=== PATIENT | male | born 1990 | race Caucasian/White ===

== ENCOUNTER 2018-01-08 14:58 | Inpatient (IN) | payer OTHER, SELFPAY ==
[2018-01-08] MEDS ORDERED: Ondansetron PF 4 MG/2 ML Vial ONE (15:19)
[2018-01-08 15:31] LABS: #Eosinphils 0.1 thou/uL (0.0-0.7); #Lymphocytes 2.4 thou/uL (1.20-3.40); #Monocytes 0.9 thou/uL (0.11-0.59); #Neutrophils 7.1 thou/uL (1.40-6.50); %Basophils 0.3 % (0.0-1.0); %Eosinophils 0.5 % (0.0-10.0); %Lymphocytes 23.1 % (21.0-51.0); %Monocytes 8.3 % (0.0-10.0); %Neutrophils 67.8 % (42.0-75.0); Hemoglobin 13.3 g/dL (14.0-18.0); Mean Corpuscular HGB CONC 34.5 g/dL (32.0-36.0); Mean Corpuscular Hemoglobin 30.5 pg (27.0-31.0); Mean Corpuscular Volume 88.4 fL (78.0-98.0); Platelet Count 264 thou/uL (130-400); RBC Distribution Width 11.1 % (11.5-14.5); Red Blood Cell (RBC) Count 4.36 mill/uL (4.70-6.10); White Blood Cell (WBC) Count 10.5 thou/uL (4.8-10.8)
[2018-01-08 15:46] LABS: Bilirubin Negative (Negative); Blood, Urine Negative (Negative); Clarity CLEAR (Clear); Glucose, Urine (Dipstick) Negative (Negative); Leukocyte Negative (Negative); Nitrite Negative (Negative); Protein, Urine (Dipstick) Negative (Neg-Trace); Specific Gravity, Urine 1.003 (1.002-1.036); Urobilinogen 0.2 mg/dL (0.2-1.0)
[2018-01-08 15:54] LABS: ALT (SGPT) 25 U/L (8-55); AST (SGOT) 26 U/L (5-34); Acetaminophen Less than 6.0 mcg/mL (10.0-30.0); Albumin 4.4 g/dL (3.5-5.0); Alcohol Less than 10 mg/dL (Less than 10); Alkaline Phosphatase 45 U/L (40-150); Anion Gap 16 mmol/L (10-20); BUN (Urea Nitrogen) 7 mg/dL (8.9-20.6); Bilirubin, Total 1.3 mg/dL (0.2-1.2); CK (CPK) 638 U/L (30-200); Calc. Creatinine Clearance 0 mL/min (70-130); Calcium 8.6 mg/dL (7.8-10.44); Carbon Dioxide 22 mmol/L (22-29); Chloride 87 mmol/L (98-107); Estimated GFR-MDRD Greater than 90; Globulin 2.2 g/dL (2.4-3.5); Glucose 143 mg/dL (70-105); Lipase 25 U/L (8-78); Potassium 3.3 mmol/L (3.5-5.1); Protein, Total 6.6 g/dL (6.0-8.3); Salicylate Less than 8.0 mg/dL (15.0-30.0); Sodium 122 mmol/L (136-145)
[2018-01-08 15:56] LABS: Cocaine Metabolite Screen Not Detected (NotDetected); Medtox Reader # READER 1; Methamphetamine Not Detected (NotDetected); Phencyclidine (PCP) Not Detected (NotDetected); THC/Cannabinoid Screen Not Detected (NotDetected)
[2018-01-08 15:57] LABS: Amphetamine Not Detected (NotDetected); Barbiturates Screen Not Detected (NotDetected); Benzodiazepine Screen Not Detected (NotDetected); Medtox Control Line Valid? VALID (VALID); Methadone Not Detected (NotDetected); Opiate Screen Not Detected (NotDetected); Oxycodone Screen Not Detected (NotDetected); Tricyclic Screen Not Detected (NotDetected)
--- NOTE | 2018-01-08 15:57 | RAD ---
PORTABLE AP CHEST RADIOGRAPH: Date: 01-08-18 History: Altered mental status, nausea, vomiting. Comparison: None available. FINDINGS: The cardiac silhouette is magnified by projection. Pulmonary vasculature is within normal limits. The lungs are clear. Osseous structures are intact. IMPRESSION: No acute cardiopulmonary process. POS: [facility]
[2018-01-08 15:58] LABS: Troponin I Less than 0.010 ng/mL (< 0.028)
--- NOTE | 2018-01-08 16:09 | CT ---
NONCONTRAST CT HEAD: Date: 01/08/18 HISTORY: Altered mental status, nausea and vomiting. Patient reports numbness to hands and tongue. COMPARISON: None available. FINDINGS: There is no evidence of a hemorrhage, acute infarction, mass effect, or midline shift. There is strea k artifact seen in the posterior fossa, but no definite abnormalities are appreciated. Ventricular sy stem is normal in size, shape, and position. Mucus retention cyst seen in the right maxillary antrum with minimal mucosal thickening in each maxillary antrum. Mastoid air cells are clear. Calvarial stru ctures are intact. IMPRESSION: 1. No acute intracranial abnormality is demonstrated. 2. Minimal sinus disease. POS: [facility]
[2018-01-08] MEDS ORDERED: Lorazepam 2 MG/ML VIAL ONE ×3 (16:26→19:31)
[2018-01-08] MEDS ORDERED: Piperacillin/Tazobactam 4.5 GM VIAL ONE (16:55)
[2018-01-08 17:12] LABS: INR-International Normal Ratio 1.1; PTT 30.2 SEC (22.9-36.1)
[2018-01-08] MEDS ORDERED: Vancomycin HCl 1.25 GM in Sodium Chloride 0.9% 250 ML 250 ML IVPB SCH (17:15)
[2018-01-08 17:19] LABS: Magnesium 1.1 mg/dL (1.6-2.6)
[2018-01-08 17:21] LABS: CRP (Inflammatory) Less than 0.50 mg/dL (= or < 0.5); Uric Acid 3.2 mg/dL (3.5-7.2)
[2018-01-08 17:22] LABS: Phosphorus 1.6 mg/dL (2.3-4.7)
[2018-01-08 17:55] LABS: Base Excess-Venous -0.8 mmol/L (0 (+/- 2.5)); CO2 Tension (PvCO2) 39.2 mmHg (41.0-51.0); Calcium, Ionized 1.01 mmol/L (1.12-1.32); Hemoglobin - Calc 12.5 g/dL (12.0-18.0); O2 Tension (PvO2) 48.1 mmHg (35.0-45.0); Potassium 2.7 mmol/L (3.4-4.7); T. Carbon Dioxide 25.2 mmol/L (1.0-85.0); pH (Venous) 7.394 (7.35-7.45); vO2 Saturation-calc 83.3 % (94-98)
[2018-01-08] MEDS ORDERED: Lorazepam 2 MG/ML VIAL SLOW IVP PRN (19:17)
[2018-01-08] MEDS ORDERED: Ondansetron ODT 4 MG TAB PO PRN (19:25)
[2018-01-08] MEDS ORDERED: Ondansetron PF 4 MG/2 ML Vial IVP PRN (19:25)
[2018-01-08] MEDS ORDERED: Acetaminophen 325 MG TAB PO PRN (19:25)
[2018-01-08] MEDS ORDERED: Acetaminophen 650 MG Suppository PR PRN (19:25)
[2018-01-08] MEDS ORDERED: Calcium Carbonate 500 MG ChewTAB PO PRN (19:25)
[2018-01-08] MEDS ORDERED: hydrALAZINE 20 MG/ML VIAL SLOW IVP PRN (19:28)
[2018-01-08] MEDS ORDERED: Magnesium Sulfate 4 GM in Sodium Chloride 0.9% 250 ML 250 ML IVPB SCH (19:30)
[2018-01-08] MEDS ORDERED: Potassium Phosphate 30 MMOL in Sodium Chloride 0.9% 500 ML IVPB SCH (19:30)
[2018-01-08] MEDS ORDERED: Lactated Ringer's 1,000 ML IV SCH (19:30)
[2018-01-08] MEDS: Lorazepam 2 MG/ML VIAL SLOW IVP PRN ×4 (19:33→23:42)
[2018-01-08 19:43] LABS: Lactic Acid 5.1 mmol/L (0.5-2.2)
[2018-01-08] MEDS ORDERED: Calcium Gluconate 4.6 MEQ in Sodium Chloride 0.9% 100 ML IVPB SCH (20:14)
[2018-01-08] MEDS ORDERED: Multivitamins, Adult 10 ML, Folic Acid 1 MG, Thiamine HCl 100 MG in Dextrose 5 %-0.45 %... IV SCH (20:15)
--- NOTE | 2018-01-08 20:45 | HP ---
DATE OF ADMISSION: 01/08/2018 PRIMARY CARE PHYSICIAN: [facility] call admission. CHIEF COMPLAINT: Nausea, vomiting. HISTORY OF PRESENT ILLNESS: Patient is a 27-year-old male who presented to the emergency room with n ausea and vomiting. The patient is currently confused and no information is available from the patie nt. History was obtained from the ER chart. Most of the information was obtained from patient's mot her, Prudence Joy, phone number [phone]. According to the mother, patient required to have quarterly physical at [facility] to meet certain weight l imit. Over the last week or so, the patient has not been eating well. He has been drinking water mo st of the time. He presented to the emergency room with nausea, vomiting along with numbness to his hands and tongue. He also had some blurriness of vision and was diaphoretic in the emergency room. While in the emergency room, patient started having mental status changes. CT scan of the brain was negative. He received a total of 2 mg Ativan, IV fluid and Zofran in the emergency room. His sodium in the emergency room was 122 with lactic acid 5.1, phosphorus 1.6, magnesium 1.1. Blood cultures w ere drawn. He was started on broad spectrum antibiotics empirically. Past medical history, past surgical history, review of system, allergies, home medication, social his tory, family history cannot be obtained from the patient due to current cognitive status. PHYSICAL EXAMINATION: VITAL SIGNS: On ER arrival, temperature 98.3, respirations 24, pulse rate of 84, blood pressure of 1 48/68 with O2 saturation 100% on room air. GENERAL: A 27-year-old male with altered mentation. HEENT: Head atraumatic, normocephalic. Sclerae are anicteric. Dry mucous membranes. No oral lesio n. NECK: Supple, no JVD, no carotid bruit. LUNGS: Clear to auscultation bilaterally. HEART: S1, S2 present. Regular rate and rhythm. No rubs or gallops appreciated. ABDOMEN: Soft, nontender, bowel sounds present, no guarding, no rigidity. EXTREMITIES: No edema or calf tenderness. NEUROLOGIC/PSYCHIATRIC: Could not be reliably done due to current cognitive status. Pupils were 5-6 mm with good response to light. There was no hypertonia. Reflexes were equivocal. SKIN: Warm and dry. LYMPH NODES: No palpable lymph nodes in the neck. PERIPHERAL VASCULAR: Radial pulses palpable bilaterally. LABORATORY AND X-RAY FINDINGS: Sodium 122 with potassium 3.3, chloride 87, bicarbonate 22, BUN 7, cr eatinine 0.84, total bilirubin 1.3. CK was 638. Troponin negative. CRP Negative. Magnesium 1.1, p hosphorus 1.6, uric acid 3.2. Serum osmolarity 260. Urine osmolarity 148. CT scan of the brain by my review was negative. Chest x-ray by my review was negative for infiltrate. EKG by my review show ed sinus rhythm without significant ST-T wave changes. Lactic acid 5.1. IMPRESSION: 1. Metabolic encephalopathy. 2. Hyponatremia. 3. Hypokalemia/hypophosphatemia/hypomagnesemia. 4. Elevated CK. 5. Lactic acidosis. PLAN: The patient will be monitored in the intermediate care unit. We will obtain ammonia and keton es as well. We will use Ativan as needed. Replace electrolytes. I discussed with Nephrology, Dr. Og strong, who recommended starting the patient on Ringer's lactate at 125. A base met will be done every 4 hourly. Frequent neuro checks. We will discuss the plan of care with the family when they arrive.
[2018-01-08] MEDS ORDERED: Famotidine/PF 20 mg/2ml Vial SLOW IVP SCH (21:00)
[2018-01-08] MEDS: Potassium Chloride 40 MEQ in Sodium Chloride 0.9% 250 ML 250 ML IVPB SCH (22:14)
[2018-01-08 23:55] LABS: Anion Gap 13 mmol/L (10-20); BUN (Urea Nitrogen) 5 mg/dL (8.9-20.6); Calc. Creatinine Clearance 0 mL/min (70-130); Calcium 8.5 mg/dL (7.8-10.44); Carbon Dioxide 23 mmol/L (22-29); Chloride 92 mmol/L (98-107); Estimated GFR-MDRD Greater than 90; Glucose 156 mg/dL (70-105); Potassium 3.7 mmol/L (3.5-5.1); Sodium 124 mmol/L (136-145)
[2018-01-08 23:58] VITALS: BMI 29.4
[2018-01-08] MEDS ORDERED: Piperacillin/Tazobactam 4.5 GM in Sodium Chloride 0.9% 100 ML IVPB SCH (23:59)
[2018-01-09] MEDS: Lorazepam 2 MG/ML VIAL SLOW IVP PRN ×6 (00:21→19:25)
--- NOTE | 2018-01-09 00:22 | CON ---
DATE OF CONSULTATION: 01/08/2018 SERVICE: Renal medicine. HISTORY OF PRESENT ILLNESS: Mr. Lee is a 27-year-old white male who presented today for complaint of nausea and vomiting. He also associated confusion with this. According to the history, the patient has been imbibing? free water in the last several hours. At the ER, he was noted to have some decreased visual acuity and complaints of diaphoresis and numbness. He was initially noted to have several electrolyte abnormalities, which included hyponatremia. We are now being consulted for further management of this hyponatremia. REVIEW OF SYSTEMS: Not obtainable. Patient is confused. Positive for nausea and vomiting. No diarrhea, no constipation, no abdominal pain. Positive for numbness of the extremities. No syncopal episode, no productive cough, no fever or chills. MEDICATIONS: None. PAST MEDICAL HISTORY: No significant medical problems. PAST SURGICAL HISTORY: Currently not available since the patient could not cooperate in answer questioning. ALLERGIES: None. TRAUMA: None. IMMUNIZATIONS: Unknown. HOSPITALIZATIONS: Please see past medical history. FAMILY HISTORY: Noncontributory. PHYSICAL EXAMINATION: VITAL SIGNS: Blood pressure is 145/63, heart rate 79, respiratory rate 22, O2 sat 100% room air. GENERAL: Patient is awake, confused, agitated, not in overt distress. SKIN: Adequate turgor. HEENT: Patient has pinkish conjunctivae, anicteric sclerae. NECK: No neck mass, no carotid bruits, no JVD. CHEST: No deformities. Lungs, clear breath sounds, no wheezing, no crackles. HEART: Normal sinus rhythm. No murmur, no gallops, or rubs. ABDOMEN: Globular, soft, nontender, no masses. EXTREMITIES: No edema, no deformities. NEUROLOGIC: Patient is confused, agitated. HOSPITAL MEDICATIONS: Have include Ativan 1 mg q.4 p.r.n. for agitation, Pepcid 20 mg IV q.12 hours, multivitamin IV, Zofran p.r.n. LABORATORY DATA: On 01/08/2018, urinalysis specific gravity 1.003. Urine osmolality 148. Sodium 124, potassium 2.7, chloride 86, glucose 136. Uric acid is 3.2, lactic acid 5.1. On 01/08/2018, 15:16: Sodium 122, potassium 3.3 , chloride 87, carbon dioxide 22, BUN 7, creatinine 0.84, glucose 143. Calcium 8.6, AST 26, ALT 25. CPK is 638, albumin 4.4, troponin I less than 0.01. IMAGING: CT scan of the brain, no acute intracranial abnormality. Chest x-ray normal. ASSESSMENT AND PLAN: 1. Hyponatremia. 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 By intake ofcopious amounts of water this probably precipitated hyponatremia. I noted the urinalysis showed a very dilute urine specific gravity 1.003 and this patient will be able to to excrete the excess free water. My suspicion is, we really without any intervention except for free water restriction he will be able to dump the excess free water and autocorrect with the serum sodium. 2. Volume depletion/electrolyte abnormalities - there is a question that he may be volume depleted and for this reason, we are starting this patient normal saline with potassium to run at 125 mL per hour. 3. Hypomagnesemia/hypophosphatemia, hypokalemia - they currently being corrected on a p.r.n. basis. Overall, prognosis remains guarded. Agree with current management. MTDD
[2018-01-09] MEDS ORDERED: Lorazepam 2 MG/ML VIAL ONE (00:30)
[2018-01-09] MEDS ORDERED: Lorazepam 2 MG/ML VIAL SLOW IVP SCH (00:30)
--- NOTE | 2018-01-09 00:40 | CON ---
DATE OF CONSULTATION: 01/08/2018 SERVICE: Pulmonary Medicine. REASON FOR CONSULTATION: Encephalopathy. HISTORY OF PRESENT ILLNESS: Patient is a 27-year-old white male with past medical history significant for essentially nothing. He was in his usual state of health until he was supposed to make wait for something. We do not have lot elements of the history because he presented himself to the emergency department in a confused state. Shortly after presenting to the ER, he was discovered to be agitated, and got multiple rounds of Ativan as well. I have absolutely no presenting history to go on other than what is in the emergency room record. Apparently, he has been living off of water for the past several days trying to lose a significant amount of weight moving forward. PAST MEDICAL HISTORY: Unknown. PAST SURGICAL HISTORY: Unknown. FAMILY HISTORY: Unknown. SOCIAL HISTORY: Unknown. ALLERGIES: No known drug allergies. MEDICATIONS: List of his inpatient medications were reviewed. Multiple updates were made. REVIEW OF SYSTEMS: This cannot be obtained as the patient is currently encephalopathic. PHYSICAL EXAMINATION: VITAL SIGNS: Afebrile, pulse 92, blood pressure 122/54, respirations 24, saturation 96% on room air. GENERAL: The patient is agitated. HEENT: Normocephalic, atraumatic. Sclerae are white, conjunctivae pink. Oral and nasal mucosa is moist without lesions. He is diaphoretic on both sides of his face. LUNGS: Excellent air entry. There is absolutely no prolonged expiratory phase , wheezing, rhonchi or crackles. HEART: Normal rate, regular. ABDOMEN: Soft, nontender, nondistended. Bowel sounds are positive. MUSCULOSKELETAL: No cyanosis or clubbing. There is no pitting in the bilateral lower extremities. NEUROLOGIC: Grossly nonfocal. He is moving all 4 extremities and demonstrates wonderful strength. He is talking in nonsensical words. LABORATORY DATA: CBC is grossly unremarkable. ESR and CRP are both also unremarkable. INR 1.1. PH 7.39, pCO2 of 39, pO2 of 48. Sodium 124 and gently up trending, potassium 2.7. Ionized calcium 1.01, uric acid 3.2, lactate 5.1 and roughly stable. Cortisol level, and TSH fall within the normal limits. Troponin is negative x1. Magnesium and phosphorus are both reduced. Liver function studies are essentially unremarkable except for minimally elevated total bilirubin of 1.3. His CK is elevated at 638. Urinalysis is essentially unremarkable. Urine osmolality is extremely low. Beta hydroxybutyric acid is unremarkable. Urine drug screen, salicylate, acetaminophen and plasma alcohol levels are all unremarkable. IMAGIN. Chest x-ray demonstrates no acute cardiopulmonary abnormality. 2. CT of the brain demonstrates no acute intracranial abnormality. ASSESSMENT: 1. Metabolic encephalopathy with agitation. 2. Severe dehydration. 3. Hypomagnesemia. 4. Hypophosphatemia. 5. Hypokalemia. 6. Hypocalcemia. 7. Elevated CK. DISCUSSION AND PLAN: I believe the patient is horrendously dehydrated. He has been drinking free water without any electrolytes for several days. My understanding is that this was an attempt to make weight for something. His urine is extremely dilute suggesting that he is trying very hard to hold on to solutes. Dr. Coyne is placing him on half normal saline. I will give him a banana bag to make certain he has some vitamins available. Potassium, magnesium , calcium, and phosphate are going to be replaced. We will repeat these laboratory values in the morning. He will need Ativan to be available every 30 minutes until his mentation improves a little bit and he finds himself a touch more cooperative. His urine drug screen was negative. That being said, it does not preclude the possibility that he did synthetic cannabinoid that does not show up on these things. Lactate will be repeated through time. If they trend down, we will continue to observe, but if they trend upward, this will certainly require closer attention. He remains in fairly critical condition, but we will monitor him very closely in the IMCU. CRITICAL CARE TIME: Thirty minutes. MTDD
[2018-01-09 00:46] LABS: Actual Bicarbonate (HCO3a) 14.7 mEq/L (22-28); Base Excess (BEa) -9.7 mEq/L (-2.0 to +3.0); CO2 Tension 28.4 mmHg (35.0-45.0); Calcium, Ionized 1.12 mmol/L (1.12-1.30); Carboxyhemoglobin (COHb) 1.2 gm% (0.0-3.0); Hemoglobin (Hb) 13.2 g/dL (14.0-18.0); O2 Tension (PaO2) 227.8 mmHg (80.0-100.0); Potassium - ABG Lab 3.43 mmol/L (3.70-5.30); pH, Arterial 7.33 (7.35-7.45)
[2018-01-09 00:49] LABS: Puncture Site RRAD
[2018-01-09] MEDS ORDERED: Haloperidol Lactate 5 MG/ML VIAL ONE (01:17)
--- NOTE | 2018-01-09 02:42 | PRG ---
DATE OF SERVICE: 01/09/2018 SERVICE: Pulmonary Medicine. INTERVAL HISTORY: Patient got severely agitated overnight once again. As such, he was moved from [facility] to the ICU. He was initiated on Precedex drip, combination of this, Haldol, and a couple dose s of Ativan, has got the patient more collected once again. I was asked to evaluate the patient, see whether or not endotracheal intubation would be appropriate. He cannot provide any additional eleme nts of the history. Otherwise, nursing reports no overnight events. PHYSICAL EXAMINATION: VITAL SIGNS: T-max 100.5, pulse 88, blood pressure 138/54, respirations 18, saturation 98% on room a ir. GENERAL: Patient is somnolent. He closes his eyes. He has episodes of agitation, but currently is sedated. HEENT: Normocephalic, atraumatic. Sclerae white, conjunctivae pink. Oral and nasal mucosa is moist without lesions. LUNGS: Excellent air entry. There is no prolonged expiratory phase or wheezing present. HEART: Normal rate, regular. ABDOMEN: Soft, nontender, nondistended. Bowel sounds are positive. MUSCULOSKELETAL: No cyanosis or clubbing. There is no pitting in the bilateral lower extremities. NEUROLOGIC: Grossly nonfocal. LABORATORY DATA: Sodium 124 and up trending, chloride 92 and up trending, potassium 3.7. Basic meta bolic profile is otherwise unremarkable. Calcium 8.5, ammonia 36. pH 7.33, pCO2 of 28, pO2 of 227. ASSESSMENT: 1. Metabolic encephalopathy. 2. Hypomagnesemia. 3. Hypophosphatemia. 4. Hypokalemia, resolved. 5. Hypocalcemia, resolved. 6. Elevated creatine kinase. DISCUSSION AND PLAN: We will continue medications in order to provide a touch of sedation to the pat ient. He will have 10 mg of Haldol q.6 as needed, Ativan 2 mg every 15 as needed, we would also init iate Precedex drip. The Precedex drip will be weaned away through time. Luu catheter will be disc ontinued, as I would not like the patient have a traumatic injury there. Morning labs including lact ate, basic metabolic profile, and CK are once again pending. He will remain in the ICU. Hopefully, some of his laboratories will continue to trend in the correct direction. I will spend the next hour at bedside to make certain the patient does not have severe agitation or requiring intubation. CRITICAL CARE TIME: 60 minutes.
[2018-01-09 02:55] VITALS: BP 136/71
[2018-01-09] MEDS: Potassium Chloride 40 MEQ in Sodium Chloride 0.9% 250 ML 250 ML IVPB SCH (03:25)
[2018-01-09 04:06] LABS: Lactic Acid 1.5 mmol/L (0.5-2.2)
[2018-01-09 04:12] LABS: Anion Gap 11 mmol/L (10-20); BUN (Urea Nitrogen) 6 mg/dL (8.9-20.6); CK (CPK) 1811 U/L (30-200); Calc. Creatinine Clearance 193 mL/min (70-130); Calcium 8.8 mg/dL (7.8-10.44); Carbon Dioxide 25 mmol/L (22-29); Chloride 100 mmol/L (98-107); Estimated GFR-MDRD Greater than 90; Glucose 127 mg/dL (70-105); Sodium 132 mmol/L (136-145)
[2018-01-09] MEDS: Haloperidol Lactate 5 MG/ML VIAL SLOW IVP PRN ×3 (05:39→19:25)
--- NOTE | 2018-01-09 05:47 | PDOC.EVN ---
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 Lydia ferrari was called. In IMCU, found that ~ 9 nurses and security were trying to keep patient down. Patient was in restraints but fighting restraints and very agitated. Nurse Staff states that patient has been given ~ 16mg of Ativan but patient is agitated so they called code blue and are going to intubated the patient. Upon reviewing the patient vitals and labs including Blood gas, there was no need for intubation at the time. Called egg worker on his recommendation and agreed to just sedate patient with precedex and stay away from intubation. Patient was transferred to the ICU. 4mg Ativan was given, 5mg of Haldol given. Luu catheter was placed. Called legal intern for their recommendation. Per Nephro, just continue current treatment. Dr. Sullivan egg worker has come to the ICU and examined the patient and also agrees to continue current management at this time. Assessment: Encephalopathy, Acute -- etiology unclear. continue current treatment. Total Critical ICU time is ~120mins
[2018-01-09] MEDS: D5 NS w/ 40 mEq KCl 1,000 ML IV SCH ×2 (06:20→07:46)
[2018-01-09] MEDS: D5 1/2 NS w/20 mEq KCL 1,000 ML IV SCH ×2 (09:32→16:03)
[2018-01-09 14:37] LABS: Anion Gap 10 mmol/L (10-20); BUN (Urea Nitrogen) 5 mg/dL (8.9-20.6); Calc. Creatinine Clearance 193 mL/min (70-130); Calcium 9.1 mg/dL (7.8-10.44); Carbon Dioxide 25 mmol/L (22-29); Chloride 106 mmol/L (98-107); Estimated GFR-MDRD Greater than 90; Glucose 117 mg/dL (70-105); Magnesium 2.1 mg/dL (1.6-2.6); Sodium 137 mmol/L (136-145)
[2018-01-09 14:41] LABS: Phosphorus 1.5 mg/dL (2.3-4.7)
[2018-01-09 14:49] LABS: CK (CPK) 7078 U/L (30-200)
[2018-01-09] MEDS ORDERED: Potassium Phosphate 30 MMOL in Sodium Chloride 0.9% 250 ML 250 ML IV SCH (15:15)
[2018-01-09] MEDS ORDERED: Sodium Phosphate 30 MMOL in Sodium Chloride 0.9% 250 ML 250 ML IV SCH (15:45)
--- NOTE | 2018-01-09 18:17 | PRG ---
DATE OF SERVICE: 01/09/2018 SUBJECTIVE: Mr. Joy is a 27-year-old white male who was seen for his acute hyponatremia. 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 Urinalysis was relatively benign with a specific gravity which was suggestive of very dilute urine. He autocorrected spontaneously. His serum sodium is now normal. He is now on maintenance half normal saline with 20 mEq and running at 1 25 mL per hour. He is sedated at the present time. Last night he was severely agitated. OBJECTIVE: VITAL SIGNS: Blood pressure is noted at 148/71, heart rate 62, respiratory rate 17, pulse ox 100%. GENERAL: Sedated, comfortable, not in distress. SKIN: Adequate turgor. HEENT: He has pinkish conjunctivae, anicteric sclerae. NECK: No neck mass, no carotid bruits, no JVD. CHEST: No deformities. LUNGS: Clear breath sounds. No wheezing, no crackles. HEART: Normal sinus rhythm. No murmur, no gallops or rubs. ABDOMEN: Globular, soft, nontender, no masses. EXTREMITIES: No edema, no deformities. MEDICATIONS: Of 01/09/2018 was reviewed. LABORATORY DATA: Of 01/09/2018. Sodium 137, potassium 4, chloride 106, carbon dioxide 25, BUN 5, cr eatinine 0.86, glucose 117, phosphorus 1.5, CPK 7078. ASSESSMENT AND PLAN: 1. Hyponatremia -- secondary to primary polydipsia -- much improved. Serum sodium now is within nor mal. Continue maintenance D5 half normal saline. 2. Hypophosphatemia/hypokalemia, p.r.n. correction. 3. Decreased mentation, unclear etiology. This could be from metabolic encephalopathy. The initial CT scan of the head was within normal.
--- NOTE | 2018-01-09 22:45 | PDOC.PN ---
- Subjective Encounter Start Date: 01/09/18 Encounter Start Time: 08:00 Patient seen and examined for Hyponatremia/Met Encephalopathy. Remains confused. Overnight events noted - Objective Resuscitation Status: Resuscitation Status FULL:Full Resuscitation MAR Reviewed: Yes Vital Signs & Weight: Vital Signs (12 hours) Temp Pulse Ox 01/09/18 20:00 97.9 F 100 01/09/18 16:00 97.8 F 01/09/18 14:00 99 01/09/18 12:00 97.9 F Weight Admit Weight 229 lb Weight 229 lb 1.6 oz Most Recent Monitor Data Heart Rate from ECG 86 NIBP 138/70 NIBP BP-Mean 92 Respiration from ECG 19 SpO2 100 I&O: 01/08/18 01/09/18 01/10/18 06:59 06:59 06:59 Intake Total 1652.4 1806 Output Total 1400 1000 Balance 252.4 806 Result Diagrams: 01/10/18 06:03 01/09/18 14:02 Additional Labs: Accuchecks 01/09/18 19:49 POC Glucose 111 H Radiology Reviewed by me: Yes (CXR - no infiltrate) EKG Reviewed by me: Yes (Tele SR) Phys Exam - Physical Examination Constitutional: NAD Respiratory: no wheezing, no rales, no rhonchi, clear to auscultation bilateral Cardiovascular: RRR, no rub No heaves/pulsations Gastrointestinal: soft, no distention, positive bowel sounds no guarding/rigidity Musculoskeletal: no edema Neurological: moves all 4 limbs Neuro/Psych - Cannot obtain due to current mentation Dx/Plan - Plan DVT proph w/SCDs IMPRESSION: 1. Toxic Metabolic encephalopathy 2. Hyponatremia. 3. Hypokalemia/hypophosphatemia/hypomagnesemia. 4. Rhabdomyolysis 5. Lactic acidosis. PLAN: Cont Ativan PRN IVF changed to D51/2 NS with Potassium - per Nephro Monitor electrolytes closely Critical care/Nephro input appreciated Cont other meds as below Review of Systems - Review of Systems Other: Cannot obtain due to current mentation. - Medications/Allergies Allergies/Adverse Reactions: Allergies Allergy/AdvReac Type Severity Reaction Status Date / Time No Known Drug Allergies Allergy Verified 01/08/18 17:09 Medications: Current Medications Acetaminophen (Tylenol) 650 mg VT Q4H PRN PRN Reason: Headache/Fever/Mild Pain (1-3) Acetaminophen (Tylenol) 650 mg PO Q4H PRN PRN Reason: Headache/Fever/Mild Pain (1-3) Calcium Carbonate (Tums) 1,000 mg PO Q4H PRN PRN Reason: Heartburn or Indigestion Haloperidol Lactate (Haldol) 10 mg SLOW IVP Q4H PRN PRN Reason: Agitation Last Admin: 01/09/18 19:25 Dose: 10 mg Hydralazine HCl (Apresoline) 10 mg SLOW IVP Q4H PRN PRN Reason: SBP Greater Than 180 Dexmedetomidine HCl 400 mcg/ (Sodium Chloride) 100 mls @ 0 mls/hr IVPB INF ANTON ; Protocol Last Admin: 01/09/18 17:42 Dose: 100 mls Potassium Chloride/Dextrose/Sod Cl (D5 1/2 Ns W/20 Meq Kcl) 1,000 mls @ 125 mls /hr IV .Q8H ANTON Last Admin: 01/09/18 16:03 Dose: 1,000 mls Lorazepam (Ativan) 2 mg SLOW IVP Q15MIN PRN PRN Reason: Agitation Last Admin: 01/09/18 12:56 Dose: 2 mg Ondansetron HCl (Zofran Odt) 4 mg PO Q6H PRN PRN Reason: Nausea/Vomiting Ondansetron HCl (Zofran) 4 mg IVP Q6H PRN PRN Reason: Nausea/Vomiting Sodium Chloride (Flush - Normal Saline) 10 ml IVF Q12HR ANTON Last Admin: 01/09/18 20:51 Dose: 10 ml Sodium Chloride (Flush - Normal Saline) 10 ml IVF PRN PRN PRN Reason: Saline Flush
[2018-01-10] MEDS: D5 1/2 NS w/20 mEq KCL 1,000 ML IV SCH ×3 (00:02→16:29)
[2018-01-10] MEDS: Haloperidol Lactate 5 MG/ML VIAL SLOW IVP PRN ×3 (00:05→10:25)
[2018-01-10] MEDS: Lorazepam 2 MG/ML VIAL SLOW IVP PRN ×2 (03:37→04:00)
[2018-01-10 06:32] LABS: CK (CPK) Greater than 4000 U/L (30-200)
[2018-01-10 06:39] LABS: #Lymphocytes 2.3 thou/uL (1.20-3.40); #Monocytes 0.8 thou/uL (0.11-0.59); #Neutrophils 3.9 thou/uL (1.40-6.50); %Basophils 0.5 % (0.0-1.0); %Eosinophils 0.6 % (0.0-10.0); %Lymphocytes 32.7 % (21.0-51.0); %Monocytes 11.7 % (0.0-10.0); %Neutrophils 54.4 % (42.0-75.0); Hemoglobin 13.6 g/dL (14.0-18.0); Mean Corpuscular HGB CONC 33.3 g/dL (32.0-36.0); Mean Corpuscular Hemoglobin 29.7 pg (27.0-31.0); Mean Corpuscular Volume 89.1 fL (78.0-98.0); Mean Platelet Volume 7.7 fL (7.4-10.4); Platelet Count 225 thou/uL (130-400); RBC Distribution Width 11.6 % (11.5-14.5); Red Blood Cell (RBC) Count 4.59 mill/uL (4.70-6.10); White Blood Cell (WBC) Count 7.1 thou/uL (4.8-10.8)
--- NOTE | 2018-01-10 10:37 | PRG ---
DATE OF SERVICE: 01/10/2018 SUBJECTIVE: The patient remains encephalopathic in the ICU. He is on Precedex, Haldol p.r.n., Ativan p.r.n., rigoberto ears to be slightly more responsive. Most of his electrolytes apparently have improved. Admission sodium was 122. OBJECTIVE: VITAL SIGNS: Pulse 99, blood pressure 122/82, sats 100%, 17. CHEST: No wheezing. CARDIAC: Normal S1, S2, no gallops. ABDOMEN: Soft. EXTREMITIES: No edema. LABORATORY DATA: White count 7000. Renal functions, electrolytes normal. CK was 7000, today is 400 0. IMPRESSION: 1. Status post metabolic encephalopathy. 2. Massive water intake with ensuing severe hyponatremia. 3. Electrolyte imbalance. PLAN: Continue aggressive PT and nutrition. We will follow in the ICU.
[2018-01-10 12:36] LABS: Anion Gap 11 mmol/L (10-20); BUN (Urea Nitrogen) 4 mg/dL (8.9-20.6); Calc. Creatinine Clearance 195 mL/min (70-130); Calcium 9.1 mg/dL (7.8-10.44); Carbon Dioxide 23 mmol/L (22-29); Chloride 107 mmol/L (98-107); Estimated GFR-MDRD Greater than 90; Glucose 109 mg/dL (70-105); Potassium 4.1 mmol/L (3.5-5.1); Sodium 137 mmol/L (136-145)
--- NOTE | 2018-01-10 13:22 | PRG ---
DATE OF SERVICE: 01/10/2018 Mr. Joy is a 27-year-old white male who was seen for an acute hyponatremia secondary to presumed primary polydipsia. His hyponatremia is much improved. However, his mentation remains not yet back to baseline. He still is confused. He is off sedation the present time. OBJECTIVE: VITAL SIGNS: Blood pressure is 106/57, heart rate is 63, respiratory rate 17, pulse ox 100%. GENERAL: The patient is arousable, but is sleepy, not in distress. SKIN: Adequate turgor. HEENT: He has had pinkish conjunctivae, anicteric sclerae. NECK: No neck mass, no carotid bruits, no JVD. CHEST: No deformities. LUNGS: Clear breath sounds. HEART: Normal sinus rhythm. No murmur, no gallops, no rubs. ABDOMEN: Globular, soft, nontender, no masses. EXTREMITIES: No edema. No deformities. MEDICATIONS: Of January 10, 2018, was reviewed. LABORATORY DATA: Of January 10, 2018, white count 7.1, hemoglobin 13.6. Sodium 137, potassium 4, ch loride 106, carbon dioxide 25, BUN 5, creatinine 0.86, glucose 117, calcium 9.1, phosphorus 3.0. CK is greater than 4000. ASSESSMENT AND PLAN: Acute hyponatremia, most likely from primary polydipsia, much improved. The patient has spontaneous auto correction of his hyponatremia. Continue current management. No indication for any hypertonic saline. We will continue current D5 half normal saline to maintain his volume status. Due to the im proved hyponatremia, we will be signing off. Please recall if needed.
--- NOTE | 2018-01-10 21:47 | PDOC.PN ---
- Subjective Encounter Start Date: 01/10/18 Encounter Start Time: 14:00 -: non-verbal Patient seen and examined for Encephalopathy. Mentation improvng. Somnolent. No overnight events - Objective Resuscitation Status: Resuscitation Status FULL:Full Resuscitation MAR Reviewed: Yes Vital Signs & Weight: Vital Signs (12 hours) Temp Pulse Ox 01/10/18 20:00 99 01/10/18 19:00 98.4 F 01/10/18 16:00 98.1 F Weight Admit Weight 229 lb Weight 229 lb 1.6 oz Most Recent Monitor Data Heart Rate from ECG 44 NIBP 103/48 NIBP BP-Mean 66 Respiration from ECG 14 SpO2 99 I&O: 01/09/18 01/10/18 01/11/18 06:59 06:59 06:59 Intake Total 1652.4 3462 1646 Output Total 1400 1000 3100 Balance 252.4 6420 -9379 Result Diagrams: 01/10/18 06:03 01/10/18 06:03 Additional Labs: Accuchecks 01/10/18 00:00 POC Glucose 106 EKG Reviewed by me: Yes (Tele SR) Phys Exam - Physical Examination Constitutional: NAD Respiratory: no wheezing, no rhonchi Cardiovascular: RRR, no rub Gastrointestinal: soft, non-tender, positive bowel sounds Musculoskeletal: no edema Neurological: moves all 4 limbs Dx/Plan - Plan DVT proph w/SCDs IMPRESSION: 1. Toxic Metabolic encephalopathy - improving 2. Hyponatremia - improving 3. Hypokalemia/hypophosphatemia/hypomagnesemia. 4. Rhabdomyolysis 5. Lactic acidosis. PLAN: Cont IVF AM labs Ativan PRN Cont current meds as below Laboratory Tests 01/09/18 01/10/18 14:02 06:03 Phosphorus 3.0 Magnesium 2.0 Creatine Kinase 7078 H Greater than 4000 H Review of Systems - Review of Systems Respiratory: negative: Cough, Dry, Shortness of Breath, Hemoptysis, SOB with Excertion, Pleuritic Pain, Sputum, Wheezing Cardiovascular: negative: chest pain, palpitations, orthopnea, paroxysmal nocturnal dyspnea, edema, light headedness, other - Medications/Allergies Allergies/Adverse Reactions: Allergies Allergy/AdvReac Type Severity Reaction Status Date / Time No Known Drug Allergies Allergy Verified 01/08/18 17:09 Medications: Current Medications Acetaminophen (Tylenol) 650 mg WA Q4H PRN PRN Reason: Headache/Fever/Mild Pain (1-3) Acetaminophen (Tylenol) 650 mg PO Q4H PRN PRN Reason: Headache/Fever/Mild Pain (1-3) Calcium Carbonate (Tums) 1,000 mg PO Q4H PRN PRN Reason: Heartburn or Indigestion Haloperidol Lactate (Haldol) 10 mg SLOW IVP Q4H PRN PRN Reason: Agitation Last Admin: 01/10/18 10:25 Dose: 10 mg Hydralazine HCl (Apresoline) 10 mg SLOW IVP Q4H PRN PRN Reason: SBP Greater Than 180 Potassium Chloride/Dextrose/Sod Cl (D5 1/2 Ns W/20 Meq Kcl) 1,000 mls @ 125 mls /hr IV .Q8H [facility] Last Admin: 01/10/18 16:29 Dose: 1,000 mls Dexmedetomidine HCl 400 mcg/ (Sodium Chloride) 100 mls @ 0 mls/hr IVPB INF [facility] ; Protocol Last Admin: 01/10/18 16:57 Dose: 100 mls Lorazepam (Ativan) 2 mg SLOW IVP Q15MIN PRN PRN Reason: Agitation Last Admin: 01/10/18 04:00 Dose: 2 mg Ondansetron HCl (Zofran Odt) 4 mg PO Q6H PRN PRN Reason: Nausea/Vomiting Ondansetron HCl (Zofran) 4 mg IVP Q6H PRN PRN Reason: Nausea/Vomiting Sodium Chloride (Flush - Normal Saline) 10 ml IVF Q12HR [facility] Last Admin: 01/10/18 21:45 Dose: 10 ml Sodium Chloride (Flush - Normal Saline) 10 ml IVF PRN PRN PRN Reason: Saline Flush
[2018-01-11] MEDS: D5 1/2 NS w/20 mEq KCL 1,000 ML IV SCH ×2 (00:56→09:29)
[2018-01-11 05:18] LABS: #Eosinphils 0.1 thou/uL (0.0-0.7); #Lymphocytes 2.5 thou/uL (1.20-3.40); #Monocytes 0.7 thou/uL (0.11-0.59); #Neutrophils 2.5 thou/uL (1.40-6.50); %Basophils 0.6 % (0.0-1.0); %Eosinophils 1.4 % (0.0-10.0); %Lymphocytes 42.5 % (21.0-51.0); %Monocytes 11.9 % (0.0-10.0); %Neutrophils 43.7 % (42.0-75.0); Hemoglobin 13.7 g/dL (14.0-18.0); Mean Corpuscular HGB CONC 34.1 g/dL (32.0-36.0); Mean Corpuscular Hemoglobin 30.7 pg (27.0-31.0); Mean Platelet Volume 8.2 fL (7.4-10.4); Platelet Count 230 thou/uL (130-400); RBC Distribution Width 11.5 % (11.5-14.5); Red Blood Cell (RBC) Count 4.47 mill/uL (4.70-6.10); White Blood Cell (WBC) Count 5.8 thou/uL (4.8-10.8)
[2018-01-11 05:37] LABS: ALT (SGPT) 46 U/L (8-55); AST (SGOT) 70 U/L (5-34); Albumin 4.1 g/dL (3.5-5.0); Alkaline Phosphatase 39 U/L (40-150); Anion Gap 10 mmol/L (10-20); BUN (Urea Nitrogen) 4 mg/dL (8.9-20.6); Bilirubin, Total 0.9 mg/dL (0.2-1.2); CK (CPK) 3744 U/L (30-200); Calc. Creatinine Clearance 189 mL/min (70-130); Calcium 9.2 mg/dL (7.8-10.44); Carbon Dioxide 27 mmol/L (22-29); Chloride 105 mmol/L (98-107); Estimated GFR-MDRD Greater than 90; Globulin 2.6 g/dL (2.4-3.5); Glucose 112 mg/dL (70-105); Magnesium 1.8 mg/dL (1.6-2.6); Phosphorus 3.9 mg/dL (2.3-4.7); Potassium 3.8 mmol/L (3.5-5.1); Protein, Total 6.7 g/dL (6.0-8.3); Sodium 138 mmol/L (136-145)
[2018-01-11] MEDS ORDERED: Enoxaparin Sodium 40 MG/0.4 ML SYRINGE SC SCH (09:00)
--- NOTE | 2018-01-11 10:42 | PRG ---
DATE OF SERVICE: 01/11/2018 SUBJECTIVE: This morning, he is awake, alert, responsive. He is much improved to his baseline OBJECTIVE: VITAL SIGNS: Blood pressure is 124/56, pulse 82, sats are 98%, respirations 21. GENERAL: In no distress. He is neurologically oriented to person, place, and time. CHEST: No wheezing or crackles. CARDIAC: Normal S1 and S2. No gallops. ABDOMEN: Soft. LABORATORY DATA: Sodium 138. CK is 374. IMPRESSION: 1. Binge water drinking, chronic electrolyte imbalance, much improved. 2. Encephalopathy, resolved. PLAN: The patient is going to be discharged home today. Follow up with his primary care physician. He may need ongoing counseling.
[2018-01-11 12:59] VITALS: TEMP 98.2
--- NOTE | 2018-01-12 10:42 | DIS ---
DATE OF DISCHARGE: 01/11/2018 DISCHARGE DISPOSITION: Home. FOLLOWUP: Follow up with primary care physician in 1 week. The patient was advised to follow up at [facility]. He has never seen a primary care physician before. DISCHARGE MEDICATIONS: None. The patient was seen and examined on the day of discharge, denies any new complaints, no chest pain, shortness of breath, palpitations reported. BRIEF HOSPITAL COURSE: The patient is a 27-year-old white male with no significant past history, who presented to the hospital with nausea, vomiting and confusion. Please refer to the history and phys ical for further details. The patient was admitted to the hospital with a diagnosis of metabolic encephalopathy. He was monito red in the IMCU and was eventually transferred to the CCU due to uncontrolled agitation. His workup was consistent with multiple electrolyte abnormalities including hyponatremia, hypokalemia, hypophosp hatemia and lactic acidosis. The patient was seen by Critical Care as well as Nephrology. His elect rolytes have been gradually replaced. His sodium, potassium, phosphorus and magnesium are normal. L actic acidosis has resolved. His mentation is back to normal. His CK has improved [place] 3744 on the da y of discharge. He will require a base met along with magnesium, phosphorus, and CK after 1 week. P [facility] physician advised to follow. Plan of care was discussed with the patient in detail. He stated understanding. FINAL DIAGNOSES: 1. Metabolic encephalopathy, multifactorial. 2. Multiple electrolyte abnormalities including hypotonic hyponatremia, hypokalemia, hypophosphatemi a and hypomagnesemia. 3. Lactic acidosis. 4. Rhabdomyolysis. Plan of care was discussed with the patient in detail. He stated understanding.
--- NOTE | 2018-01-17 11:00 | EKG ---
Test Reason : Blood Pressure : / mmHG Vent. Rate : 084 BPM Atrial Rate : 084 BPM P-R Int : 158 ms QRS Dur : 110 ms QT Int : 384 ms P-R-T Axes : 049 094 042 degrees QTc Int : 453 ms Normal sinus rhythm Rightward axis Minimal voltage criteria for LVH, may be normal variant Borderline ECG Confirmed by XIN MORSE M.D. ([id number]), online editor MARIA D GARIBAY ([id number] on 01/17/2018 11:00:29 AM Referred By: Confirmed By:XIN MORSE M.D.
== END 2018-01-11 12:51 | disposition home or self-care (01) | DRG 640 ==
LOC: ERS 14:58 → CCU 18:46 → IMCU/EMU 18:56 → CCU 01-09 00:58
PROVIDERS: ADMIT Internal Medicine; ATTEND Internal Medicine
DX: E87.1 Hypo-osmolality and hyponatremia (principal); G93.41 Metabolic encephalopathy; M62.82 Rhabdomyolysis; E87.6 Hypokalemia; E83.39 Other disorders of phosphorus metabolism; E87.2 Acidosis; E83.51 Hypocalcemia; E83.42 Hypomagnesemia; E86.0 Dehydration; R45.1 Restlessness and agitation; R09.02 Hypoxemia
CPT/HCPCS: 36415; 36416; 51701; 70450; 71045; 80048; 80053; 80306; 80307; 81003; 82010; 82140; 82330; 82533; 82550; 82553; 82803; 82805; 83605; 83690; 83735; 83930; 83935; 84100; 84443; 84484; 84550; 85025; 85610; 85652; 85730; 86140; 87040; 87086; 93005; 94760; 96361; 96365; 96375; 96376; J1630; J1650; J2060; J2405; J2543; J3370; J3411; J3475; J3480; J7042; J7050; S0028

== ENCOUNTER 2020-09-30 00:47 | Emergency (ER) | payer OTHER ==
[2020-09-30 01:10] LABS: Mean Corpuscular HGB CONC 35.9 g/dL (32.0-36.0); Mean Corpuscular Hemoglobin 32.4 pg (27.0-31.0); Mean Corpuscular Volume 90.2 fL (78.0-98.0); Mean Platelet Volume 7.8 fL (7.4-10.4); Platelet Count 212 thou/uL (130-400); RBC Distribution Width 11.2 % (11.5-14.5); Red Blood Cell (RBC) Count 4.31 mill/uL (4.70-6.10); White Blood Cell (WBC) Count 7.1 thou/uL (4.8-10.8)
[2020-09-30 01:27] LABS: ALT (SGPT) 17 U/L (8-55); AST (SGOT) 19 U/L (5-34); Albumin 4.4 g/dL (3.5-5.0); Alkaline Phosphatase 42 U/L (40-110); Anion Gap 19 mmol/L (10-20); BUN (Urea Nitrogen) 13 mg/dL (8.9-20.6); Bilirubin, Total 0.8 mg/dL (0.2-1.2); Calc. Creatinine Clearance 0 mL/min (70-130); Calcium 9.3 mg/dL (7.8-10.44); Carbon Dioxide 20 mmol/L (22-29); Chloride 102 mmol/L (98-107); Globulin 2.8 g/dL (2.4-3.5); Glucose 166 mg/dL (70-105); Potassium 3.8 mmol/L (3.5-5.1); Protein, Total 7.2 g/dL (6.0-8.3); Sodium 137 mmol/L (136-145)
[2020-09-30 01:49] LABS: Eosinophils 1 % (0-10); Lymphocytes 59 % (21-51); MDiff Complete? YES; Monocytes 6 % (0-10); Neutrophil 32 % (42-75); Platelet Morphology Comment Appears Adequate; Reactive Lymphocytes 1 % (0-10)
[2020-09-30] MEDS ORDERED: Ondansetron ODT 4 MG TAB ONE (02:38)
== END 2020-09-30 03:22 | disposition home or self-care (01) ==
LOC: ERS 00:47
DX: R11.2 Nausea with vomiting, unspecified (principal); R42 Dizziness and giddiness
CPT/HCPCS: 36415; 36416; 80053; 85025; 93005; Q0162